=== PATIENT | female | born 1995 | race Caucasian/White ===

== ENCOUNTER → 2016-08-03 22:20 | Observation (INO) ==
[2016-08-03 16:30] LABS: Basophils # 0.1 K/mcL (0.0-0.2); Basophils % 0.3 %; Eosinophils % 0.2 %; Hematocrit 35.5 % (35.3-44.9); Hemoglobin 11.9 g/dL (11.5-15.4); Immature Granulocytes % 1.5 % (0-4); Lymphocytes # 2.6 K/mcL (0.6-4.6); Lymphocytes % 12.6 %; Mean Corpuscular HGB Conc 33.5 g/dL (31.6-35.5); Mean Corpuscular Hemoglobin 32.1 pg (28.0-33.3); Mean Corpuscular Volume 95.7 fL (83.0-100.0); Mean Platelet Volume 11.4 fL (9.4-12.4); Monocytes # 0.9 K/mcL (0.0-1.3); Monocytes % 4.3 %; Neutrophils # 16.5 K/mcL (1.6-8.9); Platelet Count 209 K/mcL (140-400); Red Blood Count 3.71 M/mcL (3.82-4.97); Red Cell Distribution Width 12.7 % (11.5-14.5); Segmented Neutrophils % 81.1 %
[2016-08-03 16:31] LABS: Bilirubin,Urine Negative (Negative); Blood,Urine Negative (Negative); Clarity,Urine Cloudy (Clear); Color,Urine Dark Yellow (Yellow); Glucose,Urine (UA) Normal (Normal); Ketones,Urine 40 mg/dL (Negative); Leukocyte Esterase,Urine Small (Negative); Nitrite,Urine Negative (Negative); PH,Urine 6.5 pH Units (5.0-8.0); Protein,Urine Trace mg/dL (Neg-Trace); Specific Gravity,Urine 1.028 (1.010-1.025); Urobilinogen,Urine Normal (Normal)
[2016-08-03 16:35] LABS: Bacteria,Urine Few per hpf (None-Few); RBC,Urine 0-3 per hpf (0-3); Squamous Epithelial Cell,Urine Many per lpf (None-Few)
[2016-08-03 16:52] LABS: Hyaline Casts,Urine Few per lpf (None-Few); Mucus,Urine Moderate (Few)
--- NOTE | 2016-08-03 18:51 | OB/GYN History & Physical ---
Date of Encounter: 08/03/16 Time of Encounter: 18:44 Assessment and Plan (1) 29 weeks gestation of Current visit: Yes Status: Acute (2) uterine contractions in third trimester, antepartum Current visit: Yes Status: Acute Pt is now s/p 1 liter LR IV bolus and terbutaline x1. Celestone given x1. Will repeat tomorrow. Second liter IV bolus ordered. Pt denies cramping pain. SVE 1/80/-1 x 2 exams. Will consider magnesium at this time if contractions persist. Possible transfer to [facility] if cervical change noted discussed at length with pt. POC per Dr. Rodrigues (3) Dehydration Current visit: Yes Status: Acute UA with high specific gravity and 40 ketones. Pt s/p 1 liter fluid bolus and receiving another liter at this time. (4) Leukocytosis, unspecified Current visit: Yes Status: Acute WBC 20.5 prior to administration of celestone. No evidence of infection otherwise. Qualifiers: Leukocytosis type: unspecified Qualified Code(s): D72.829 - Elevated white blood cell count, unspecified History of Present Illness Chief complaint: contractions HPI: Ms. Flores is a 20 year old female presenting at 29 weeks gestation with c/ o contractions and shortened cervical length. She was evaluated in the office today and US showed cervical length 18mm with vertex presentation and adequate fluid. Initially in triage pt was not having contractions on toco but after a while she started having regular contractions. She reports one episode of emesis this am and she has not had much water or food today. She reports some pelvic pressure and lower back pain but no cramping pain, LOF, or VB. Good FM. Past Med Surg Social Fam HX - Past Medical History Medical history: no medical history Psychiatric history: no psych history - Social History Smoking Status: Never smoker Smokeless Tobacco Status: No Alcohol use: none Drug use: none Obstetrical History - Pregnancies : 2 Para: 0 Ab's: 1 - History/Complications History/Complications: 6 week SAB Medications and Allergies Allergies No Known Allergies Allergy (Verified 10/20/15 17:46) Review of System OB - Constitutional Constitutional ROS IM: no chills, no fever(s) - Nose, mouth, and throat Nose, mouth and throat: no nasal congestion, no nasal discharge, no post-nasal drip - Respiratory Respiratory: no cough, no chest congestion - Gastrointestinal Gastrointestinal: vomiting, no cramping - Genitourinary Genitourinary: no dysuria, no urinary frequency, no urinary urgency, no vaginal discharge, no vaginal odor Exam - Constitutional Constitutional: well developed, well nourished, no acute distress - HEENT HEENT: Mucus Membranes Dry - Neck Neck exam: normal inspection - Lungs Respiratory exam: CTAB - Cardiovascular Cardiovascular exam: RRR, +S1, +S2 - Abdomen Abdomen: Present: gravid. Absent: non tender - Vulva Vulva: bilateral: normal - Vagina Vagina: Present: normal moisture - Cervix Dilation: 1 Effacement: 80 Station: -1 - Uterus Uterus exam: Absent: tender - Anus/Rectum Anus/Rectum: Present: normal perianal skin Results Result Diagrams: 08/03/16 16:15 Abnormal lab results WBC 20.4 K/mcL (4.3-11.1) H 08/03/16 16:15 RBC 3.71 M/mcL (3.82-4.97) L 08/03/16 16:15 Neutrophils # 16.5 K/mcL (1.6-8.9) H 08/03/16 16:15 Urine Clarity Cloudy (Clear) A 08/03/16 16:10 Ur Specific [place] 1.028 (1.010-1.025) H 08/03/16 16:10 Urine Ketones 40 mg/dL (Negative) H 08/03/16 16:10 Ur Leukocyte Esterase Small (Negative) H 08/03/16 16:10 Urine Microscopic WBC 5-15 per hpf (0-3) H 08/03/16 16:10 Ur Squamous Epith Cells Many per lpf (None-Few) H 08/03/16 16:10 Urine Mucus Moderate (Few) H 08/03/16 16:10 Ur Culture Indicated? YES (NO) A 08/03/16 16:10 All other labs normal. - VTE Reasons for not Prescribing Prophylaxis: Treatment not Indicated - Low risk for VTE
--- NOTE | 2016-08-03 19:09 | OB Labor Progress Note ---
Date of Encounter: 08/03/16 Time of Encounter: 19:07 Labor Progress Note - Subjective Subjective: Pt reports less pressure and the uc's are easing up with hydration. No other c/ o. No s/sx's of infection. - Vital Signs Vital Signs: AF, VSS - Cervix Cervix: 1+/80/-2 - Heart Tones Heart Tones: RNST - Keno Keno: irregular uc's - Plan Plan: Cont. obs. Consider repeat Brethine vs MgSo4.
--- NOTE | 2016-08-03 22:03 | OB Labor Progress Note ---
Date of Encounter: 08/03/16 Time of Encounter: 22:00 Labor Progress Note - Subjective Subjective: Pt no longer feeling uc's or pressure. No VB or LOF. - Vital Signs Vital Signs: AF - Cervix Cervix: 1/80/-1 (No change) - Heart Tones Heart Tones: RNST - Beltrami Beltrami: occ irritability. - Plan Plan: Encouraged pt to stay overnight for observation however she states she feels much better and desires d/c home stating she can do bed rest at home and be off of work. Advised pelvic rest. She states she will call for recurrent uc's, vb or lof. She is aware of high risk of premature delivery. She will return to office tomorrow for rpt dose of steroids.
[~2016-08-03 22:20] MED LIST: Betamethasone Acet/SodPhos 6 MG/ML MDV IM SCH; Ringers Solution, Lactated 1,000 ML IVC ONE; Ringers Solution, Lactated 1,000 ML ONE; Terbutaline 1 MG/ML VIAL SQ ONE
== END | disposition home or self-care (01) ==
LOC: 1NENULAB
PROVIDERS: ADMIT Obstetrics & Gynecology; ATTEND Obstetrics & Gynecology

== ENCOUNTER → 2016-09-23 18:05 | Observation (INO) ==
--- NOTE | 2016-09-23 18:05 | Discharge Summary ---
Date of Encounter: 09/23/16 Time of Encounter: 18:05 - Discharge Diagnosis (1) 37 weeks gestation of Priority: Primary Status: Acute Comments: admitted for observation (2) NST (non-stress test) reactive Priority: Secondary Status: Acute Comments: BAseline 135 bpm moderate variability +15x15 accels no decels noted. (3) uterine contractions in third trimester, antepartum Priority: Secondary Status: Acute Comments: no cervical change after labor evaluation - Discharge Medications Home Medications: No Known Home Drugs 09/23/16 [History] Allergies/Adverse Reactions: Allergies No Known Allergies Allergy (Verified 10/20/15 17:46) Date of admission: 09/23/16 16:07 Discharging clinician: Lesvia Tracy date of discharge: 09/23/16 - Patient Status Disposition: Home, Self-Care Condition: Good - Discharge Instructions Follow Up With: Amarjit Rodrigues MD [Partnered Physician] - Additional Instructions: LABOR AND DELIVERY DISCHARGE INSTRUCTIONS Signs and Symptoms to be Reported to your Doctor Immediately: * Sudden gush, continuous or intermittent lead of fluid from vagina (note the time of gush and color of fluid) * Onset of bright red vaginal bleeding with or without pain (if you had a vaginal exam during this visit you may notice some dark red spotting. This is normal.) * Contractions that are 5 minutes apart (from the beginning of one contraction to the beginning of the next) and last 45-60 seonds; contractions that you can no longer walk, talk or laugh through. * A change in the baby's activity. This could be an increase or decrease in activity. * Severe headache which does not go away with tylenol. * Sudden swelling in the face, hands, arms and/or legs. * Upper abdominal pain - sometimes associated with heartburn or nausea and is not relieved by Maalox, Mylanta or Tums. * Kick Counts _6-8_ One hour after a meal, lay down on one side in a quiet place. Count the number of time the baby moves during an hour. If less than 6 movements, notify your physician Diet: *Force fluids, 8 to 10 tall glasses of fluid per day - may include popsicles and jello *Limit caffeine - this includes chocolate, coffee, tea, any soft drink containing such as all rebecca, Naveed Yellow and Mountain Dew - Diet and Activity Activity: increase activity as tolerated Diet: regular diet Hospital Course CREAM DUMPER Hospital course: Patient is 21 y/o at 37 weeks gestation presents with complaints of contractions that have increased in strength. Patient denies LOF or VB. Patient reports +FM. Time Attestation: Total time spent providing and/or coordinating discharge services: Time Spent: Less than 30 minutes Exam - Constitutional General appearance IM: A&O X 3, pleasant, answers questions appropriately (FHR 135 bpm moderate variability +15x15 accels no decels noted. Contractions are irregular cat. 1 tracing) - VTE Reasons for not Prescribing Prophylaxis: Treatment not Indicated - Low risk for VTE
== END | disposition home or self-care (01) ==
LOC: 1NENULAB
PROVIDERS: ADMIT Obstetrics & Gynecology; ATTEND Obstetrics & Gynecology

== ENCOUNTER 2016-09-24 04:49 | Inpatient (IN) ==
[~2016-09-24 04:49] MED LIST changes: -Betamethasone Acet/SodPhos 6 MG/ML MDV IM SCH; +Famotidine 20 MG/2 ML VIAL IVP PRN; +Naloxone 0.4 MG/ML INJ IVP PRN; +Ondansetron 4 MG/2 ML VIAL IVP PRN; -Ringers Solution, Lactated 1,000 ML IVC ONE; -Ringers Solution, Lactated 1,000 ML ONE; -Terbutaline 1 MG/ML VIAL SQ ONE
[2016-09-24] MEDS ORDERED: Oxytocin 20 units/ LR 1000 mL 20 UNIT/1,000 ML BAG IVC ONE (04:52)
[2016-09-24] MEDS ORDERED: Ringers Solution, Lactated 1,000 ML ONE (04:52)
--- NOTE | 2016-09-24 04:57 | OB/GYN History & Physical ---
Date of Encounter: 09/24/16 Time of Encounter: 04:52 Assessment and Plan (1) Spontaneous onset of labor Current visit: Yes Status: Acute Admit for delivery (2) 37 weeks gestation of Current visit: No Status: Acute admit for delivery History of Present Illness Chief complaint: Contractions HPI: Ms. Flores is a 21 year old female at 37w2d presents to labor and delivery with complaints of contraction that have continued since earlier today. Patient reports some bloody show. Patient denies LOF. Patient reports +FM. Blood type: A Negative, Rubella: Immune Hep B: Nonreactive, GBS: Negative. Patient was scheduled for IOL on 09/27/2016 for IUGR. Past Med Surg Social Fam HX - Past Medical History Source: patient Medical history: no medical history Psychiatric history: no psych history - Past Surgical History Surgical History: other - Social History Smoking Status: Current every day smoker Packs per day: 0.5 Smokeless Tobacco Status: No Alcohol use: none Drug use: none Current living situation: Home - Independent Activity Level: Independent ambulation Recent Out of Country Travel Within the Last 8 Weeks: No Exposure or Possible Exposure to Illness During Travel: No - Family History Mother Living Status: Still Living Hx Family Cardiac Disorders: No Hx Family Respiratory Disorders: No Hx Family Cancer: No Hx Family GI Disorders: No Hx Family Genitourinary Disorders: No Hx Family Endocrine Disorder: No Hx Family Musculoskeletal Disorders: No Hx Family Neuromuscular Disorders: No Hx Family Neurologic Disorders: No Hx Family HEENT Disorders: No Hx Family Autoimmune Disorders: No Hx Family Reproductive Disorders: No Hx Family Psychosocial Disorders: No Hx Family Medical Disorders: No Obstetrical History - Pregnancies : 2 Para: 0 Term: 0 : 0 Ab's: 1 Livin Medications and Allergies No Known Home Drugs 09/23/16 [History] Allergies No Known Allergies Allergy (Verified 10/20/15 17:46) Review of System OB - Constitutional Constitutional ROS IM: no chills, no fever(s) - Cardiovascular Cardiovascular: no lightheadedness, no palpitations, no syncope - Gastrointestinal Gastrointestinal: no abdominal pain, no constipation, no diarrhea, no heartburn , no nausea, no vomiting - Genitourinary Genitourinary: vaginal discharge (bloody show), no dysuria, no flank pain, no urinary frequency, no urinary incontinence, no vaginal odor Exam - Vital Signs Vital signs: Initial Vital Signs Temp Pulse Resp BP 97.7 F 68 16 127/72 09/24/16 04:36 09/24/16 04:36 09/24/16 04:36 09/24/16 04:36 - Constitutional Constitutional: well developed, well nourished, no acute distress, average body habitus - HEENT HEENT: Normocephaly, Mucus Membranes Moist - Neck Neck exam: full ROM - Lungs Respiratory exam: CTAB - Cardiovascular Cardiovascular exam: RRR, +S1, +S2 - Abdomen Abdomen: Present: bowel sounds normal, gravid, non tender - Extremities Extremities exam: full ROM, normal capillary refill Deep Tendon Reflex Grade: 2+ Normal - Cervix Dilation: 9 Effacement: 100 Station: 0 - Uterus Uterus exam: Present: normal size, normal contour - Anus/Rectum Anus/Rectum: Present: normal perianal skin (FHR 120 bpm moderate variability + 15x15 accels no decles noted. Contractions are 1-3.5 min apart. Cat. 1 tracing.) Results All other labs normal. - VTE Reasons for not Prescribing Prophylaxis: Treatment not Indicated - Low risk for VTE
[2016-09-24] MEDS ORDERED: Ringers Solution, Lactated 1,000 ML IVC SCH (05:00)
[2016-09-24 05:08] LABS: Basophils % 0.1 %; Hematocrit 36.4 % (35.3-44.9); Hemoglobin 12.2 g/dL (11.5-15.4); Immature Granulocytes % 0.8 % (0-4); Lymphocytes # 1.6 K/mcL (0.6-4.6); Lymphocytes % 7.3 %; Mean Corpuscular HGB Conc 33.5 g/dL (31.6-35.5); Mean Corpuscular Hemoglobin 30.7 pg (28.0-33.3); Mean Corpuscular Volume 91.7 fL (83.0-100.0); Mean Platelet Volume 11.8 fL (9.4-12.4); Monocytes # 0.4 K/mcL (0.0-1.3); Monocytes % 1.9 %; Neutrophils # 20.3 K/mcL (1.6-8.9); Platelet Count 209 K/mcL (140-400); Red Blood Count 3.97 M/mcL (3.82-4.97); Red Cell Distribution Width 13.2 % (11.5-14.5); Segmented Neutrophils % 89.9 %
[2016-09-24] MEDS ORDERED: Lidocaine 1% 20 ML MDV ONE (05:36)
[2016-09-24] MEDS ORDERED: *HR* Ropivacaine/PF 0.2% 10 ML AMPUL EP ONE (05:57)
[2016-09-24] MEDS ORDERED: *HR* FentaNYL (PF) 100 MCG/2 ML VIAL EP ONE (05:57)
[2016-09-24] MEDS ORDERED: Epidural Premix (fent/bupiv) 110 ML EP ONE (05:59)
[2016-09-24] MEDS ORDERED: *HR* FentaNYL (PF) 100 MCG/2 ML VIAL ONE (05:59)
[2016-09-24] MEDS ORDERED: *HR* Ropivacaine/PF 0.2% 10 ML AMPUL ONE (05:59)
[2016-09-24] MEDS ORDERED: Epidural Premix (fent/bupiv) 110 ML EP SCH (06:00)
--- NOTE | 2016-09-24 06:21 | Anesthesia Evaluation PreOp ---
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 Any Significant HX Other Medical History: GERD Anesthesia History: No Prior Anesthetic Complications, Past Anesthesia (T&A), Problems (no prob) : Yes Test: Positive Alcohol Use: none Drug use: none Medications and Allergies No Known Home Drugs 09/23/16 [History] Allergies No Known Allergies Allergy (Verified 10/20/15 17:46) - Meds/Allergy Pre-op Review Medications Reviewed: Yes Allergies Reviewed: Yes Beta Blockers on Current Med List: No Anesthesia Results - Labs 09/24/16 04:50 Anesthesia Exam 120/67 79 fht 124 Height: 5'0" Weight: 48 kg NPO (# of Hours): 4 Pain Scale: 8 Pain Scale Used: Numeric (1 - 10) - HEENT Pupil (Motor): Pupils equal Mallampati: II Teeth: Normal Oral Opening: Greater than 3 - BLUEPRINT REPRODUCER LOC: Oriented [employer]UEPRINT REPRODUCER Motor: Normal RUE, Normal LUE, Normal RLE, Normal LLE, Normal Face [employer]UEPRINT REPRODUCER Sensory: Normal: RUE, LUE, RLE, LLE, Face - Cardiac Rhythm: Regular Murmur: None - Pulmonary Breath Sounds: bilateral Clear Respiratory Effort: Symmetrical Anesthesia Assess/Plan ASA Score: 2 Modified Arabella Scale for Level of Consciousness: Cooperative, oriented, and tranquil Anesthetic Plan: Regional Autologous Blood: No Monitoring Plan: Standard Monitors Recovery Plan: Other (risks discussed, questions answered, consented)
--- NOTE | 2016-09-24 06:24 | Anesthesia Procedures ---
Date of Encounter: 09/24/16 Time of Encounter: 06:22 Procedures: Anesthesia - Epidural/Spinal Patient ID/Chart reviewed: Yes Patient examined: Yes OB Eval: Gestational age: 37.2 OB Eval: : 2 OB Eval: Hx Para: 0 OB Eval: Dilated at (cm): 8 OB Eval: Contractions: Non-stressed pattern Consent Obtained: Yes Supplemental Oxygen: None/Room Air Site Prep: Aseptic Technique, Sterile prep and drape, 0.5% Chlorhexidine/Alcohol Patient position: upright Local Anesthetic: Lidocaine 1% Amount of Local Anesthetic used: 3 Touhy Needle Gauge: 18 Touhy Needle Depth (cm): 6 Catheter Depth at Skin (cm): 15 Test Dose (1.5% Lido + Epi): Volume given (mls): 3 Test Dose Result: Negative Loading Dose: Fentanyl (mcg): 100 Loading Dose: Other: rop 0.2% 10cc Loading Dose Administered: Thru Touhy Needle Infusion Med: 0.125% Bupivacaine w/ 2 mcg/ml Fentanyl Infusion Rate (mls/hr): 14 (pcea 5cc q30 min) Catheter Secured in Place: Tegaderm Interspace Used: L2-L3 Loss of Resistance (RAULITO): Yes Blood: No CSF: No Paresthesia: No Procedure: aseptic, tolerated well, VSS, effective Vitals + FHT's: 124/79 77 fht 124
--- NOTE | 2016-09-24 07:12 | OB Labor Progress Note ---
Date of Encounter: 09/24/16 Time of Encounter: 06:55 Labor Progress Note - Subjective Subjective: Patient resting comfortable with epidural in place. Discussed POC with patient. Patient denies any questions or concerns. - Cervix Cervix: 100/0/1 - Heart Tones Heart Tones: 135 bpm moderate variability +15x15 accels no decels noted - Groes[place] Groesbeck: 1.5-3 min - Interventions Interventions: SVE, AROM small amount of clear fluid. Patient tolerated well - Plan Plan: Dr. Martinez notified patient is ready for delivery.
--- NOTE | 2016-09-24 08:01 | OB/GYN Procedure Note ---
Delivery - Delivery Date: 09/24/16 Provider: Fer Martinez Intrapartum events: none Delivery induction: none Delivery augmentation: rupture of membranes Delivery monitor: external FHT, external uterine Anesthesia: epidural Estimated Blood Loss: 100 - (s) Infant A Delivery Date: 09/24/16 Infant Delivery Time: 07:36 Presentation: vertex Position: MAEVE Route of delivery: Gender: Female Viability: Viable Pounds: 5 Ounces: 5 Weight Gram: 2.42 kg at 1 minute: 8 at 5 mins: 9 Shoulder Dystocia: not encountered Specimens collected: cord blood Cord: nuchal cord (around left arm and body) - Repair Laceration Description: Periurethral (bilaterally) - Complications Delivery complications: none Delivery comments: Patient is a 21-year-old 1 para 0 at 37 weeks who had presented to labor and delivery in active labor. Patient had been seen earlier in the day complaining of feeling vaginal pressure and contractions. She was 3-4 cm we washed her for couple hours she continued to contract. Patient felt to be more comfortable laboring at home and we allowed her to leave. Patient returned she was 9 cm. Patient's was complicated with a recent ultrasound showing intrauterine growth restriction. The baby was at the 10th percentile for growth and JEAN-PIERRE was 10 cm but Dopplers were normal. Patient was can be scheduled for an induction later in the week. The measurements on the baby were less than the 1st percentile. Patient did receive an epidural upon arrival she was artificially ruptured clear fluid patient and pushed for approximately 30 minutes delivering a viable female infant in left occiput anterior presentation at 0 736. There was a nuchal cord around the left arm and body 1 which was delivered through. There was no meconium, infant was bulb suctioned on the abdomen, Apgars were 8 at 1 minute and 9 at 5 minutes infant weight was 5 lbs. 5 oz. Placenta delivered spontaneously with a three- vessel cord, superintendent operating Dr. Martinez, anesthesia epidural, estimated blood loss 100 mL. She had bilateral periurethral abrasions that because of the separation I felt it would be in her best interest for us to reapproximate that before Vicryl was then used to reapproximate these preparations. Perineum cervix and vagina was visualized intact. She will be observed 2 hours before being taken floor. All needles lap and sponge counts were correct. - Disposition Mom disposition: stable in LDR Neligh disposition: stable in LDR
[2016-09-24] MEDS ORDERED: Ibuprofen 600 MG TABLET PO PRN (09:11)
[2016-09-24] MEDS ORDERED: Oxytocin 20 units/ LR 1000 mL 20 UNIT/1,000 ML BAG IVC SCH (09:11)
[2016-09-24] MEDS ORDERED: Prenatal Vit/FA 1 EACH TABLET PO SCH (09:11)
[2016-09-24] MEDS ORDERED: Rho Immune Globulin 1,500 UNIT SYRINGE IM PRN (09:11)
[2016-09-24] MEDS ORDERED: Acetaminophen 325 MG TABLET PO PRN (09:11)
[2016-09-24] MEDS ORDERED: Measles/Mumps/Rubella Vacc 0.5 ML VIAL SQ PRN (09:11)
[2016-09-25 06:28] LABS: Basophils % 0.2 %; Eosinophils % 0.3 %; Hematocrit 29.8 % (35.3-44.9); Immature Granulocytes % 0.6 % (0-4); Lymphocytes # 3.4 K/mcL (0.6-4.6); Lymphocytes % 26.7 %; Mean Corpuscular HGB Conc 33.9 g/dL (31.6-35.5); Mean Corpuscular Hemoglobin 31.6 pg (28.0-33.3); Mean Corpuscular Volume 93.1 fL (83.0-100.0); Mean Platelet Volume 12.4 fL (9.4-12.4); Monocytes # 0.6 K/mcL (0.0-1.3); Monocytes % 4.5 %; Neutrophils # 8.6 K/mcL (1.6-8.9); Platelet Count 156 K/mcL (140-400); Red Cell Distribution Width 13.6 % (11.5-14.5); Segmented Neutrophils % 67.7 %
[2016-09-25 06:42] LABS: Hemoglobin 10.1 g/dL (11.5-15.4)
--- NOTE | 2016-09-25 07:32 | Discharge Summary ---
Date of Encounter: 09/25/16 Time of Encounter: 07:30 - Discharge Diagnosis (1) Status post normal vaginal delivery Priority: Primary Status: Acute - Discharge Medications Prescriptions: Ibuprofen [Motrin] 600 mg PO Q6HR PRN #30 tab PRN Reason: Cramping Ferrous Sulfate 325 mg PO DAILY #30 tab Home Medications: No Known Home Drugs 09/23/16 [History] Ferrous Sulfate 325 mg PO DAILY #30 tab 09/25/16 [Rx] Ibuprofen [Motrin] 600 mg PO Q6HR PRN #30 tab 09/25/16 [Rx] Allergies/Adverse Reactions: Allergies No Known Allergies Allergy (Verified 10/20/15 17:46) Data Procedures and tests throughout hospitalization: Laboratory Tests 09/24/16 09/24/16 09/25/16 04:50 07:45 05:23 WBC 22.6 H 12.8 H RBC 3.97 3.20 L Hgb 12.2 10.1 L D Hct 36.4 29.8 L MCV 91.7 93.1 MCH 30.7 31.6 MCHC 33.5 33.9 RDW 13.2 13.6 Plt Count 209 156 MPV 11.8 12.4 Immature Gran % 0.8 0.6 Seg Neutrophils % 89.9 67.7 Lymphocytes % 7.3 26.7 Monocytes % 1.9 4.5 Eosinophils % 0.0 0.3 Basophils % 0.1 0.2 Neutrophils # 20.3 H 8.6 Lymphocytes # 1.6 3.4 Monocytes # 0.4 0.6 Eosinophils # 0.0 0.0 Basophils # 0.0 0.0 Baby's Blood Type A RH NEGATIVE Mother's Blood Type A RH NEGATIVE Rhogam Indicated NO Labs on day of discharge: Labs from last 24 hours 09/25/16 09/24/16 05:23 07:45 WBC 12.8 H RBC 3.20 L Hgb 10.1 L D Hct 29.8 L MCV 93.1 MCH 31.6 MCHC 33.9 RDW 13.6 Plt Count 156 MPV 12.4 Immature Gran % 0.6 Seg Neutrophils % 67.7 Lymphocytes % 26.7 Monocytes % 4.5 Eosinophils % 0.3 Basophils % 0.2 Neutrophils # 8.6 Lymphocytes # 3.4 Monocytes # 0.6 Eosinophils # 0.0 Basophils # 0.0 Baby's Blood Type A RH NEGATIVE Mother's Blood Type A RH NEGATIVE Rhogam Indicated NO Date of admission: 09/24/16 04:49 Consults: 09/24/16 09:11 Consult to Program Officer [CONS] Routine Comment: Vaginal delivery, consult needed Discharging clinician: Fer Martinez Anticipated date of discharge: 09/25/16 - Patient Status Disposition: Home, Self-Care Condition: Good Functional capacity at discharge: independent ambulation Overall status at discharge: patient is progressing back to baseline - Discharge Instructions - Diet and Activity Activity: increase activity as tolerated Diet: advance to your usual diet Hospital Course Reason for admission: active labor Delivery: Episiotomy: none Laceration: other (Periurethral laceration) Other procedures: none complications: none Discharge diagnosis: delivery baby: female Hospital course: Patient is a 21-year-old who presents to labor and delivery in active labor. Patient presented to labor and delivery through the day with complaint of contractions. She was ruben regularly but not making any cervical change. Patient chose to go home to labor at home patient returned in the middle of the night and was 9 cm. Patient delivered a viable female infant without any palpitations. was IUGR and was scheduled for an induction later this week. Baby has done well since the delivery as has mom. Patient's hospital unremarkable we will discharge patient home with a prescription for Motrin 600 mg and iron sulfate she will follow-up in the office in 4 weeks. Patient's hospital course was unremarkable. Time Attestation: Total time spent providing and/or coordinating discharge services: Exam - Constitutional Vitals: Temp Pulse Resp BP Pulse Ox 98.0 F 76 20 119/87 98 09/25/16 03:45 09/25/16 03:45 09/25/16 03:45 09/25/16 03:45 09/25/16 03:45 General appearance IM: A&O X 3 - Respiratory Respiratory exam: Present: CTAB - Cardiovascular Cardiovascular exam IM: Present: RRR - Rectal Rectal exam: deferred - Uterus Position: 2 Fingers Below Umbilicus - Extremities Exam Extremities exam IM: Present: full ROM
[2016-09-25 07:56] VITALS: BP 108/63
== END 2016-09-25 11:44 | disposition home or self-care (01) | DRG 560 ==
LOC: 1NENULAB → 1NENUOBS 10:16
PROVIDERS: ADMIT Advanced Practice Midwife; ATTEND Advanced Practice Midwife

== ENCOUNTER → 2018-08-25 13:56 | Observation (INO) ==
--- NOTE | 2018-08-25 13:33 | OB/GYN Progress Note ---
Date of Encounter: 08/25/18 Time of Encounter: 13:25 - Assessment and Plan (1) 28 weeks gestation of Current Visit: Yes Status: Acute Second betamethasone injection Discharge home with terconazole No cervical change Discharge home with labor precautions Stressed importance of attending visits Follow up in office as scheduled and PRN POC per consult with Dr Kapoor (2) Yeast infection of the vagina Current Visit: Yes Status: Acute Subjective - Subjective Principal diagnosis: Vaginal pressure Interval history: shanti Evans at 28 weeks and 4 days presents to triage with c/o vaginal pressure. She denies intercourse within the past 24 hours. She was assessed in the office yesterday with similar complaints and had a urinalysis, vaginosis panel, and vaginal exam completed; all results were negative. She was given steroids. She returned to triage today for her second dose of steroids. She has been noncompliant with her care and is seen by Dr Rodrigues. Antepartum ROS: movement normal Objective - Exam FHR: auscultation normal, category 1 FHR comments: Baseline 140 moderate variability 15x15 accels and no decels. no contractions Abdomen: Present: normal appearance, soft, gravid Uterus: Present: normal. Absent: firm Cervical dilation: 1-2 Cervix effacement: thick station: -3 Comments: no change from exam yesterday; obvious yeast on glove after vaginal exam
[~2018-08-25 13:56] MED LIST changes: +Betamethasone Acet/SodPhos 30 MG/5 ML VIAL IM SCH; -Famotidine 20 MG/2 ML VIAL IVP PRN; -Naloxone 0.4 MG/ML INJ IVP PRN; -Ondansetron 4 MG/2 ML VIAL IVP PRN; +Terconazole Vag CRM 20 GM TUBE VG SCH
== END | disposition home or self-care (01) ==
LOC: 1NENULAB
PROVIDERS: ADMIT Advanced Practice Midwife; ATTEND Advanced Practice Midwife

== ENCOUNTER 2018-09-09 19:56 | Observation (INO) ==
[2018-09-09 20:20] LABS: Bilirubin,Urine Negative (Negative); Blood,Urine Negative (Negative); Clarity,Urine Turbid (Clear); Color,Urine Yellow (Yellow); Glucose,Urine (UA) Normal (Normal); Ketones,Urine Negative (Negative); Leukocyte Esterase,Urine Small (Negative); Nitrite,Urine Negative (Negative); Protein,Urine Negative (Neg-Trace); Specific Gravity,Urine 1.016 (1.010-1.025); Urobilinogen,Urine Normal (Normal)
[2018-09-09 20:21] LABS: Bacteria,Urine Few per hpf (None-Few); Hyaline Casts,Urine None Seen per lpf (None-Few); Squamous Epithelial Cell,Urine Many per lpf (None-Few); WBC,Urine 15-30 per hpf (0-3)
[2018-09-09 20:31] LABS: Amphetamine Screen,Urine Negative ng/mL (Cutoff=1000); Barbiturate Screen,Urine Negative ng/mL (Cutoff=200); Benzodiazepines Screen,Urine Negative ng/mL (Cutoff=200); Cannabinoid Screen,Urine Positive ng/mL (Cutoff = 50); Cocaine Screen,Urine Negative ng/mL (Cutoff= 300); Opiate Screen,Urine Negative ng/mL (Cutoff=300); Phencyclidine Screen,Urine Negative ng/mL (Cutoff=25)
[2018-09-09 20:35] LABS: Amorphous Sediment,Urine Moderate (Few); RBC,Urine 0-3 per hpf (0-3)
[2018-09-09] MEDS ORDERED: Ringers Solution, Lactated 1,000 ML ONE ×2 (21:02→22:09)
[2018-09-09] MEDS ORDERED: NIFEdipine 10 MG CAPSULE PO ONE (22:18)
[2018-09-09] MEDS ORDERED: Ringers Solution, Lactated 1,000 ML IVC SCH (22:30)
--- NOTE | 2018-09-09 23:20 | OB/GYN Progress Note ---
Date of Encounter: 09/09/18 Time of Encounter: 23:17 - Assessment and Plan (1) 30 weeks gestation of Current Visit: Yes Status: Acute (2) uterine contractions in third trimester, antepartum Current Visit: No Status: Acute Patient states she has had minimal fluid intake only approximately once 2 glasses of liquids today. One bag LR bolus then LR at 250/hr Procardia 20 mg by mouth 1 No cervical change after 2 hours, but is continuing to have contractions we will monitor for 4 hours If no further cervical change and less frequent contractions will discharge home Plan of care discussed with Dr. Staton Subjective - Subjective Interval history: 30+5 weeks gestation presents to triage with complaints of uterine contractions. Patient states she is been ruben since 6:00 this morning, and they became stronger this evening so she came for evaluation. Reports good movement, denies vaginal bleeding or leaking of fluid. She does states she has had some increased vaginal discharge, but it is not leaking of fluid. Patient with history of 3 delivery at 31 weeks. Inadequate care this with Dr. Rodrigues. Patient states she is continuing to get 17P injections. Antepartum ROS: movement normal, contractions, no loss of fluid, no vaginal bleeding Objective - Vital Signs Vital Signs: Intake and Output 09/09/18 09/09/18 09/09/18 07:59 15:59 23:59 Other: Weight 47.174 kg Patient Weight 09/09/18 23:59 Weight 47.174 kg - Exam FHR: auscultation normal FHR comments: Baseline 140 Abdomen: Present: gravid Cervical dilation: 23/50/-2/vertex - Labs Labs: Abnormal lab results Turbid (Clear) A 09/09/18 20:06 Ur Leukocyte Esterase Small (Negative) H 09/09/18 20:06 15-30 per hpf (0-3) H 09/09/18 20:06 Ur Squamous Epith Cells Many per lpf (None-Few) H 09/09/18 20:06 Amorphous Sediment Moderate (Few) H 09/09/18 20:06 Ur Culture Indicated? YES (NO) A 09/09/18 20:06 U Marijuana (THC) Screen Positive ng/mL (Cutoff = 50) H 09/09/18 20:06
== END 2018-09-10 03:18 | disposition home or self-care (01) ==
LOC: 1NENULAB
PROVIDERS: ADMIT Advanced Practice Midwife; ATTEND Advanced Practice Midwife

== ENCOUNTER 2018-10-08 15:16 | Inpatient (IN) ==
[2018-10-08] MEDS ORDERED: Ondansetron 4 MG/2 ML VIAL IVP PRN ×3 (15:29→20:18)
[2018-10-08] MEDS ORDERED: *HR* FentaNYL (PF) 100 MCG/2 ML VIAL EP ONE (15:29)
[2018-10-08] MEDS ORDERED: Naloxone 0.4 MG/ML INJ IVP PRN ×2 (15:29→15:32)
[2018-10-08] MEDS ORDERED: Ringers Solution, Lactated 1,000 ML ONE ×2 (15:29→16:28)
[2018-10-08] MEDS ORDERED: EPHEDrine 50 MG/ML VIAL IVP PRN (15:29)
[2018-10-08] MEDS ORDERED: Ropivacaine/PF 0.2% 20 ML VIAL EP ONE (15:29)
[2018-10-08] MEDS ORDERED: Epidural Premix (fent/bupiv) 110 ML EP SCH (15:30)
[2018-10-08] MEDS ORDERED: Metoclopramide 10 MG/2 ML VIAL IVP PRN ×2 (15:32→20:18)
[2018-10-08] MEDS ORDERED: Famotidine 20 MG/2 ML VIAL IVP PRN (15:32)
[2018-10-08] MEDS ORDERED: *HR* Nalbuphine 10 MG/ML AMPUL IVP PRN (15:32)
[2018-10-08] MEDS ORDERED: Lidocaine 1% 20 ML MDV ID PRN (15:32)
[2018-10-08] MEDS ORDERED: Ringers Solution, Lactated 1,000 ML IVC SCH ×2 (15:45→20:18)
--- NOTE | 2018-10-08 15:45 | Anesthesia Evaluation PreOp ---
Date of Encounter: 10/08/18 - Past History Alcohol Use: none Drug use: marijuana Medications and Allergies Sertraline [Zoloft] 50 mg PO DAILY 08/25/18 [History] Allergy/AdvReac Type Severity Reaction Status Date / Time No Known Allergies Allergy Verified 09/09/18 20:06
[2018-10-08 15:47] LABS: Basophils % 0.2 %; Eosinophils % 0.1 %; Hematocrit 35.9 % (35.3-44.9); Hemoglobin 11.8 g/dL (11.5-15.4); Immature Granulocytes % 0.5 % (0-4); Lymphocytes # 1.9 K/mcL (0.6-4.6); Lymphocytes % 13.1 %; Mean Corpuscular HGB Conc 32.9 g/dL (31.6-35.5); Mean Corpuscular Hemoglobin 29.7 pg (28.0-33.3); Mean Corpuscular Volume 90.4 fL (83.0-100.0); Mean Platelet Volume 11.7 fL (9.4-12.4); Monocytes # 0.5 K/mcL (0.0-1.3); Monocytes % 3.2 %; Neutrophils # 12.3 K/mcL (1.6-8.9); Platelet Count 219 K/mcL (140-400); Red Blood Count 3.97 M/mcL (3.82-4.97); Red Cell Distribution Width 13.7 % (11.5-14.5); Segmented Neutrophils % 82.9 %; White Blood Count 14.9 K/mcL (4.3-11.1)
[2018-10-08] MEDS ORDERED: Epidural Premix (fent/bupiv) 110 ML EP ONE (15:51)
[2018-10-08] MEDS ORDERED: *HR* FentaNYL (PF) 100 MCG/2 ML VIAL ONE ×2 (16:01→16:35)
[2018-10-08] MEDS ORDERED: *HR* Oxytocin 10 UNIT/ML VIAL IM ONE ×2 (16:10→16:29)
[2018-10-08] MEDS ORDERED: Ondansetron 4 MG/2 ML VIAL ONE (16:30)
[2018-10-08] MEDS ORDERED: Dexamethasone 4 MG/ML VIAL ONE (16:30)
[2018-10-08] MEDS ORDERED: Oxytocin 20 units/ LR 1000 mL 20 UNIT/1,000 ML BAG IVC ONE (17:06)
[2018-10-08] MEDS ORDERED: *HR* Promethazine 25 MG/ML VIAL IVP PRN (17:29)
[2018-10-08] MEDS ORDERED: *HR* HYDROmorphone 2 MG TABLET PO PRN (17:29)
[2018-10-08] MEDS ORDERED: *HR* Labetalol 20 MG/4 ML SYRINGE IVP PRN (17:29)
[2018-10-08] MEDS ORDERED: *HR* OxyCODONE Immed Rel 5 MG TABLET PO PRN (17:29)
[2018-10-08] MEDS ORDERED: Acetaminophen IV 1,000 MG/100 ML INFUS..BTL IVPB ONE (17:34)
--- NOTE | 2018-10-08 17:38 | Anesthesia Progress Note ---
Date of Encounter: 10/08/18 Time of Encounter: 16:00 Anesthesia Note - Note Note: 10/08/18 17:36 Pt was sent to section emergently, consent not performed. Preoperative assessment verbally performed on the way to the operating room.
--- NOTE | 2018-10-08 17:45 | OB/GYN History & Physical ---
Date of Encounter: 10/08/18 Time of Encounter: 17:38 Assessment and Plan (1) 34 weeks gestation of Current visit: Yes Status: Acute 23-year-old at 34+6 weeks, History of labor status post betamethasone, Rh- status post RhoGAM, History of prior LTCS, Desires repeat , THC use Plan: At the time of signing the consent I noted that she started having what looked like late decelerations, so I called the emergent, FHT: 145/mod janee/+late decels, +accels History of Present Illness HPI: Ms. Flores is a 23 year old female at 34+6 weeks presents to labor and delivery in labor. She's been ruben all day and when she presented to L&D, her cervix was checked and was found to be 6cm with a bulging bag. Patient has a history of labor with delivery at 31 weeks as well as a history of primary low transverse section. According to her records, she's been noncompliant with her care, she uses THC. She had a history of labor this and was given betamethasone. She's been getting [place] injections. She desires repeat . Past Med Surg Social Fam HX - Past Medical History Medical history: non-contributory, other Additional medical history: tobacco use Psychiatric history: anxiety - Past Surgical History Surgical History: other Additional surgical history: tonsils, C/S - Social History Smoking Status: Current every day smoker Packs per day: 0.5 Smokeless Tobacco Status: No Alcohol use: none Drug use: none - Family History Mother Living Status: Still Living Hx Family Cardiac Disorders: No Hx Family Respiratory Disorders: No Hx Family Cancer: No Hx Family GI Disorders: No Hx Family Endocrine Disorder: No Hx Family Neuromuscular Disorders: No Hx Family Neurologic Disorders: No Hx Family HEENT Disorders: No Hx Family Autoimmune Disorders: No Maternal Grandfather Living Status: Still Living Hx Family Cardiac Disorders: Yes (LA at the age of 56) Hx Family Respiratory Disorders: No Hx Family Cancer: No Hx Family GI Disorders: No Hx Family Endocrine Disorder: No Hx Family Neuromuscular Disorders: No Hx Family Neurologic Disorders: No Hx Family HEENT Disorders: No Hx Family Autoimmune Disorders: No Paternal Grandfather Living Status: Hx Family Cardiac Disorders: Yes Obstetrical History - Pregnancies : 4 Para: 2 Medications and Allergies Sertraline [Zoloft] 50 mg PO DAILY 08/25/18 [History] Allergy/AdvReac Type Severity Reaction Status Date / Time No Known Allergies Allergy Verified 09/09/18 20:06 Review of System OB All systems PM: reviewed and no additional remarkable complaints except as stated Exam - Constitutional Constitutional: mild distress - Cervix Dilation: 6 Results Result Diagrams: 10/08/18 15:35 Abnormal lab results WBC 14.9 K/mcL (4.3-11.1) H 10/08/18 15:35 Neutrophils # 12.3 K/mcL (1.6-8.9) H 10/08/18 15:35 All other labs normal. - VTE Reasons for not Prescribing Prophylaxis: Treatment not Indicated - Low risk for VTE
[2018-10-08] MEDS: *HR* HYDROmorphone (PF) 1 MG/ML SYRINGE IVP PRN ×2 (18:00→18:19)
--- NOTE | 2018-10-08 18:09 | OB/GYN Procedure Note ---
Section - Date of procedure: 10/08/18 Preop diagnosis: desires repeat , category 2 FHT tracing, desires sterilization Post-op diagnosis: same Procedure: repeat low transverse, bilateral tubal ligation Surgeon: Stevo Grider Quantitated Blood Loss: 200 Was there an addictions counselor assistant present: Yes Disaster Recovery Analyst: Bee Celeste [employer] Attendant: José Miguel Philip Anesthesia Type: General section complications: none Disposition: L&D Recovery Room Specimens: Placenta, Cord segment, Cord blood, Right tube segment, Left tube segment - Infant (s) Infant A Infant Delivery Date: 10/08/18 Delivery Time: 16:09 Presentation: vertex Gender: Male Gram Weight: 2.035 kg at 1 minute: 8 at 5 minutes: 9 Shoulder Dystocia: not encountered Placenta: complete extraction - Narrative Narrative: The patient was taken to the operating room where she was prepped and draped in the usual sterile fashion in the dorsal supine position with a left-horner tilt. General anesthesia was administered. A Pfannenstiel skin incision was made with the scalpel and carried through to the underlying layer of fascia. The fascia was incised in the midline and extended laterally. The fascial incision was dissected bluntly to reveal the underlying rectus muscles. The underlying rectus muscles were dissected off bluntly in the midline to reveal the peritoneum. The peritoneum was bluntly dissected, entered, and extended superiorly and inferiorly with good visualization of the bladder. The bladder blade was inser camilo. The lower uterine segment was incised in a transverse fashion using the scalpel and extended using manual traction. Clear fluid was noted. The was subsequently delivered atraumatically. The nose and mouth were bulb suctioned. The cord was clamped and cut. The infant was subsequently handed to the awaiting nursery nurse. The placenta was removed spontaneously intact with a 3-vessel cord noted. The uterus was exteriorized and cleared of all clots and debris. The uterine incision was repaired in 2 layers using 0 vicryl suture. Hemostasis was visualized. At this point, attention was diverted to the patient's tubes, a [place] clamp grasped the isthmic portion of each tube and approximately a 1-cm knuckle on either side was tied off with two lengths of 0 plain catgut. Intervening knuckle was excised and passed off the field. The proximal end of the tubal mucosa was cauterized. The uterus was returned to the abdomen. The uterine incision was reexamined and was noted to be hemostatic. The fascia was closed with 0 Vicryl. The skin was closed with 4-0 vicryl. Sponge, lap, and instrument counts were correct x2. The patient was stable at the completion of the procedure and was subsequently transferred to the recovery room in stable condition.
[2018-10-08] MEDS ORDERED: Simethicone 80 MG TAB.CHEW PO PRN (20:18)
[2018-10-08] MEDS ORDERED: Rho Immune Globulin 1,500 UNIT SYRINGE IM ONE (20:18)
[2018-10-08] MEDS ORDERED: Sennosides 8.6 MG TABLET PO PRN (20:18)
[2018-10-08] MEDS ORDERED: Oxytocin 20 units/ LR 1000 mL 20 UNIT/1,000 ML BAG IVC SCH (20:18)
--- NOTE | 2018-10-08 22:29 | Anesthesia Evaluation Post Op ---
Date of Encounter: 10/08/18 Time of Encounter: 21:30 - Vital Signs Vital Signs: Vital Signs Temperature 98.2 F 10/08/18 21:40 Pulse Rate 65 10/08/18 21:40 Respiratory Rate 14 10/08/18 21:40 Blood Pressure 121/70 10/08/18 21:40 O2 Sat by Pulse Oximetry 95 10/08/18 21:40 Temperature 98.2 F 10/08/18 21:40 Pulse Rate 65 10/08/18 21:40 Respiratory Rate 14 10/08/18 21:40 Blood Pressure 121/70 10/08/18 21:40 O2 Sat by Pulse Oximetry 95 10/08/18 21:40 - Lungs Lungs: Clear Ascult./Percussion - Airway Airway: Non-obstructed - Cardiovascular Regular Rate - Mental Status Mental Status: Alert & Oriented, Answers Appropriately - Pain Pain Scale: 4 Pain Scale used: Numeric (1 - 10) - Nausea Vomiting Nausea Vomiting: Not Present - Hydration Hydration: NPO, [place] catheter - Discharge PostOp Status: Transfer Patient to floor
[2018-10-08] MEDS: *HR* OxyCODONE/APAP 5/325 TABLET PO PRN (23:00)
[2018-10-09] MEDS: Ibuprofen 600 MG TABLET PO PRN ×4 (02:20→23:28)
[2018-10-09] MEDS: *HR* OxyCODONE/APAP 5/325 TABLET PO PRN ×4 (05:42→21:10)
--- NOTE | 2018-10-09 09:02 | OB/GYN Progress Note ---
Date of Encounter: 10/09/18 Time of Encounter: 09:00 - Assessment and Plan (1) Status post repeat low transverse section Current Visit: Yes Status: Acute Continue routine postop/ care anticipate discharge home tomorrow (2) Breast feeding status of mother Current Visit: No Status: Acute support prn Subjective - Subjective Principal diagnosis: Status post repeat c/s Interval history: Patient was 34w6d came into labor and delivery laboring. SVE 6cm dilated with bulging membranes. Patient was taken for an emergent repeat c/s for late decelerations. Patient reports pain is well controlled today. Patient reports: appetite normal, voiding normally, pain well controlled, ambulating normally [place]: doing well, in NICU, nursing well (breast pump) Objective - Vital Signs Latest vital signs: Vital Signs Temp Pulse Resp BP Pulse Ox 10/09/18 08:16 97.9 F 67 16 128/75 10/09/18 04:05 98.8 F 72 14 109/67 98 10/08/18 22:40 97.9 F 64 14 127/81 98 10/08/18 21:40 98.2 F 65 14 121/70 95 10/08/18 20:40 98.2 F 73 16 120/83 96 10/08/18 20:10 97.9 F 68 16 116/71 96 10/08/18 19:40 98.1 F 75 16 112/87 95 Intake and Output 10/08/18 10/09/18 10/09/18 23:59 07:59 15:59 Intake Total 550 / 550 Output Total 1125 / 1125 940 / 940 Balance -1125 / -1125 -390 / -390 Intake: Oral 550 / 550 Output: Catheter 1125 / 1125 940 / 940 Other: Weight 47.1 kg Patient Weight 10/09/18 23:59 Weight 47.1 kg - Exam Lungs: bilateral: normal Chest: Normal S1, Normal S2 Extremities: Present: normal Abdomen: Present: soft Incision: Present: normal, dry, intact, dressed (medipore dressing) Uterus: Present: normal, firm Fundal Height: 3 (U/3) - Labs Labs: Laboratory Results - last 24 hr 10/08/18 10/08/18 15:35 16:23 WBC 14.9 H RBC 3.97 Hgb 11.8 Hct 35.9 MCV 90.4 MCH 29.7 MCHC 32.9 RDW 13.7 Plt Count 219 MPV 11.7 Immature Gran % 0.5 Seg Neutrophils % 82.9 Lymphocytes % 13.1 Monocytes % 3.2 Eosinophils % 0.1 Basophils % 0.2 Neutrophils # 12.3 H Lymphocytes # 1.9 Monocytes # 0.5 Eosinophils # 0.0 Basophils # 0.0 Baby's Blood Type A RH NEGATIVE Mother's Blood Type A RH NEGATIVE Rhogam Indicated NO
[2018-10-09 09:14] LABS: Basophils % 0.2 %; Eosinophils % 0.2 %; Hematocrit 38.3 % (35.3-44.9); Hemoglobin 12.4 g/dL (11.5-15.4); Immature Granulocytes % 0.6 % (0-4); Lymphocytes # 3.2 K/mcL (0.6-4.6); Lymphocytes % 17.5 %; Mean Corpuscular HGB Conc 32.4 g/dL (31.6-35.5); Mean Corpuscular Hemoglobin 30.3 pg (28.0-33.3); Mean Corpuscular Volume 93.6 fL (83.0-100.0); Monocytes # 0.8 K/mcL (0.0-1.3); Monocytes % 4.2 %; Platelet Count 229 K/mcL (140-400); Red Blood Count 4.09 M/mcL (3.82-4.97); Red Cell Distribution Width 13.9 % (11.5-14.5); Segmented Neutrophils % 77.3 %; White Blood Count 18.1 K/mcL (4.3-11.1)
[2018-10-09] MEDS: Prenatal Vit/FA 1 EACH TABLET PO SCH (09:42)
[2018-10-10] MEDS: *HR* OxyCODONE/APAP 5/325 TABLET PO PRN ×3 (01:45→10:27)
[2018-10-10] MEDS: Ibuprofen 600 MG TABLET PO PRN (06:02)
[2018-10-10 07:58] VITALS: BP 116/69
[2018-10-10] MEDS: Prenatal Vit/FA 1 EACH TABLET PO SCH (08:14)
--- NOTE | 2018-10-10 09:59 | Discharge Summary ---
Date of Encounter: 10/10/18 Time of Encounter: 09:56 - Discharge Diagnosis (1) Status post repeat low transverse section Priority: Primary Status: Acute Comments: S/P delivery day 2 Pain is well controlled Lochia is light and without clots VSS Tolerating regular diet, passing flatus Voiding without difficulty Breast feeding Discharge home today - Discharge Medications Prescriptions: New Breast Pump [BREAST PUMP] 1 each .ROUTE AD #1 each Docusate [Colace] 100 mg PO BID #30 capsule Ferrous Sulfate 325 mg PO DAILY #90 tablet Simethicone [Gas-X] 80 mg PO TID PRN tab.chew PRN Reason: Dyspepsia Ibuprofen [Motrin] 600 mg PO Q6HR PRN #30 tablet PRN Reason: Cramping OxyCODONE/APAP 5/325 [Percocet 5/325 MG] 1 each PO Q6H PRN 5 Days #20 tablet PRN Reason: Moderate pain 4-6 Continued Sertraline [Zoloft] 50 mg PO DAILY Home Medications: Sertraline [Zoloft] 50 mg PO DAILY 08/25/18 [History] Breast Pump [BREAST PUMP] 1 each .ROUTE AD #1 each 10/10/18 [Rx] Docusate [Colace] 100 mg PO BID #30 capsule 10/10/18 [Rx] Ferrous Sulfate 325 mg PO DAILY #90 tablet 10/10/18 [Rx] Ibuprofen [Motrin] 600 mg PO Q6HR PRN #30 tablet 10/10/18 [Rx] OxyCODONE/APAP 5/325 [Percocet 5/325 MG] 1 each PO Q6H PRN 5 Days #20 tablet 10/10/18 [Rx] Simethicone [Gas-X] 80 mg PO TID PRN tab.chew 10/10/18 [Rx] Allergies/Adverse Reactions: Allergy/AdvReac Type Severity Reaction Status Date / Time No Known Allergies Allergy Verified 09/09/18 20:06 Data Procedures and tests throughout hospitalization: Laboratory Tests 10/08/18 10/08/18 10/09/18 15:35 16:23 08:29 WBC 14.9 H 18.1 H RBC 3.97 4.09 Hgb 11.8 12.4 Hct 35.9 38.3 MCV 90.4 93.6 MCH 29.7 30.3 MCHC 32.9 32.4 RDW 13.7 13.9 Plt Count 219 229 MPV 11.7 12.0 Immature Gran % 0.5 0.6 Seg Neutrophils % 82.9 77.3 Lymphocytes % 13.1 17.5 Monocytes % 3.2 4.2 Eosinophils % 0.1 0.2 Basophils % 0.2 0.2 Neutrophils # 12.3 H 14.0 H Lymphocytes # 1.9 3.2 Monocytes # 0.5 0.8 Eosinophils # 0.0 0.0 Basophils # 0.0 0.0 Baby's Blood Type A RH NEGATIVE Mother's Blood Type A RH NEGATIVE Rhogam Indicated NO - Impressions ITS Impressions KUB X-Ray 10/08/18 16:24 IMPRESSION: No radiopaque foreign bodies seen on this limited view of the abdomen D/ / Jace Alcazar MD / Jace Alcazar MD Interpreting Provider: Jace Alcazar MD Date of admission: 10/08/18 15:16 Primary care physician: PCP NONE Discharging clinician: Cecilia Khan Anticipated date of discharge: 10/10/18 - Patient Status Disposition: Home, Self-Care Condition: Good Functional capacity at discharge: independent ambulation Overall status at discharge: patient is progressing back to baseline - Discharge Instructions Follow Up With: NONE,PCP [Primary Care Provider] - Stevo Grider MD [Partnered Physician] - - Diet and Activity Activity: increase activity as tolerated Diet: regular diet Hospital Course Reason for admission: IUP - , labor Delivery: section Episiotomy: none Laceration: none Other procedures: none complications: none Discharge diagnosis: delivery baby: male Time Attestation: Total time spent providing and/or coordinating discharge services: Time Spent: Less than 30 minutes - VTE Reasons for not Prescribing Prophylaxis: Treatment not Indicated - Low risk for VTE Documentation of Mechanical Device: Intermittent pneumatic compression device Exam - Constitutional Vitals: Temp Pulse Resp BP Pulse Ox 98.3 F 65 16 116/69 100 10/10/18 07:57 10/10/18 07:57 10/10/18 07:57 10/10/18 07:57 10/10/18 07:57 General appearance IM: cooperative, A&O X 3, pleasant - Respiratory Respiratory exam: Present: CTAB - Cardiovascular Cardiovascular exam IM: Present: RRR, +S1, +S2 - GI/Abdominal Incision: normal, dry, intact (steri strips in place c/d/i) - Rectal Rectal exam: deferred - Uterine Tone: Firm Uterus Position: 3 Fingers Below Umbilicus, Midline - Extremities Exam Extremities exam IM: Present: normal capillary refill, normal inspection, radial pulses palpable and symmetrical - Neurological Exam Neurological exam: alert, oriented X3
== END 2018-10-10 11:05 | disposition home or self-care (01) | DRG 540 ==
LOC: 1NENULAB → OBSVTOIN 15:16 → 1NENUOBS 20:15
PROVIDERS: ADMIT Registered Nurse; ATTEND Registered Nurse

== ENCOUNTER 2021-04-11 08:05 | Observation (INO) ==
[2021-04-11 09:32] LABS: Bilirubin,Urine Negative (Negative); Blood,Urine Negative (Negative); Clarity,Urine Clear (Clear); Color,Urine Light-Yellow (Yellow); Glucose,Urine (UA) Normal (Normal); Ketones,Urine Negative (Negative); Leukocyte Esterase,Urine Negative (Negative); Nitrite,Urine Negative (Negative); Protein,Urine Negative (Neg-Trace); Specific Gravity,Urine 1.013 (1.010-1.025); Urobilinogen,Urine Normal (Normal)
[2021-04-11 09:34] LABS: Basophils # 0.1 K/mcL (0.0-0.2); Basophils % 0.4 %; Eosinophils % 0.1 %; Hematocrit 47.8 % (35.3-44.9); Immature Granulocytes % 0.4 % (0-4); Lymphocytes # 1.5 K/mcL (0.6-4.6); Lymphocytes % 10.6 %; Mean Corpuscular HGB Conc 33.5 g/dL (31.6-35.5); Mean Corpuscular Hemoglobin 31.7 pg (28.0-33.3); Mean Corpuscular Volume 94.8 fL (83.0-100.0); Mean Platelet Volume 10.4 fL (9.4-12.4); Monocytes # 0.5 K/mcL (0.0-1.3); Monocytes % 3.8 %; Platelet Count 299 K/mcL (140-400); Red Blood Count 5.04 M/mcL (3.82-4.97); Segmented Neutrophils % 84.7 %; White Blood Count 14.1 K/mcL (4.3-11.1)
[2021-04-11 09:42] LABS: Amphetamine Screen,Urine Negative ng/mL (Cutoff=1000); Barbiturate Screen,Urine Negative ng/mL (Cutoff=200); Benzodiazepines Screen,Urine Negative ng/mL (Cutoff=200); Cannabinoid Screen,Urine Positive ng/mL (Cutoff = 50); Cocaine Screen,Urine Negative ng/mL (Cutoff= 300); Opiate Screen,Urine Negative ng/mL (Cutoff=300); Phencyclidine Screen,Urine Negative ng/mL (Cutoff=25)
[2021-04-11 09:55] LABS: Acetaminophen < 10 mcg/mL (10-20); Alanine Aminotransferase 11 Units/L (7-52); Albumin/Globulin Ratio 1.5 (1.1-2.2); Alkaline Phosphatase 84 Units/L (34-104); Aspartate Amino Transferase 15 Units/L (13-39); BUN/Creatinine Ratio 10 (6-26); Bilirubin,Direct 0.1 mg/dL (0.0-0.2); Bilirubin,Indirect 0.2 mg/dL (0.0-1.0); Bilirubin,Total 0.3 mg/dL (0.3-1.0); Blood Urea Nitrogen 8 mg/dL (6-20); Carbon Dioxide 25 mEq/L (23-29); Chloride 101 mEq/L (98-107); Chol/HDL Ratio 2.3 (0-4.9); Cholesterol 207 mg/dL (< 200); Ethanol 104 mg/dL (Less than 10); Globulin 3.4 g/dL (2.4-3.5); Glucose 100 mg/dL (70-105); HDL Cholesterol 90 mg/dL (40-59); LDL Cholesterol,Calculated 89 mg/dL (< 100); Osmolality,Calculated 284 (280-300); Potassium 3.4 mEq/L (3.5-5.1); Salicylate < 2.5 mg/dL (15.0-30.0); Sodium 138 mEq/L (136-145); Total Protein 8.4 g/dL (6.4-8.9); Triglycerides 140 mg/dL (< 150); eGFR For African Americans > 60 (> 60); eGFR For Non-African Americans > 60 (> 60)
[2021-04-11 10:07] LABS: Thyroid Stimulating Hormone 1.506 mcIU/mL (0.340-5.600)
[2021-04-11] MEDS: *HR* LORazepam 1 MG TABLET PO PRN ×2 (10:09→20:16)
[2021-04-11 11:13] LABS: Influenza A PCR Negative (Negative); Influenza B PCR Negative (Negative); Resp. Syncytial Virus PCR Negative (Negative)
[2021-04-11 11:14] LABS: SARS-CoV-2 by PCR (In House) Negative (Negative)
[2021-04-11] MEDS ORDERED: 0.9 % Sodium Chloride 1,000 ML IV ONE (13:43)
[2021-04-11] MEDS ORDERED: Naloxone 0.4 MG/ML INJ IVP PRN (14:18)
[2021-04-11] MEDS ORDERED: *HR* LORazepam 2 MG/ML VIAL IVP PRN ×3 (14:18)
[2021-04-11] MEDS ORDERED: *HR* Promethazine 25 MG/ML VIAL IM PRN (14:18)
[2021-04-11] MEDS ORDERED: Acetaminophen 325 MG TABLET PO PRN (14:18)
[2021-04-11 15:14] LABS: Estimated Average Glucose 108 mg/dl; Hemoglobin A1C 5.4 %
[2021-04-11] MEDS: Ondansetron 4 MG/2 ML VIAL IVP PRN (20:15)
[2021-04-11] MEDS: Melatonin 3 MG TABLET PO PRN (20:16)
[2021-04-11] MEDS: Nicotine 14 MG PATCH.TD24 TD SCH (22:05)
[2021-04-12 04:07] LABS: Hematocrit 42.1 % (35.3-44.9); Mean Corpuscular HGB Conc 32.3 g/dL (31.6-35.5); Mean Corpuscular Volume 95.9 fL (83.0-100.0); Mean Platelet Volume 10.8 fL (9.4-12.4); Platelet Count 212 K/mcL (140-400); Red Blood Count 4.39 M/mcL (3.82-4.97); Red Cell Distribution Width 14.1 % (11.5-14.5); White Blood Count 8.3 K/mcL (4.3-11.1)
[2021-04-12 04:11] LABS: Hemoglobin 13.6 g/dL (11.5-15.4)
[2021-04-12 04:21] LABS: BUN/Creatinine Ratio 12 (6-26); Blood Urea Nitrogen 9 mg/dL (6-20); Calcium 8.6 mg/dL (8.6-10.3); Carbon Dioxide 26 mEq/L (23-29); Chloride 107 mEq/L (98-107); Glucose 83 mg/dL (70-105); Magnesium 1.7 mg/dL (1.6-2.6); Osmolality,Calculated 286 (280-300); Phosphorous 3.7 mg/dL (2.7-4.5); Potassium 3.5 mEq/L (3.5-5.1); Sodium 139 mEq/L (136-145); eGFR For African Americans > 60 (> 60); eGFR For Non-African Americans > 60 (> 60)
[2021-04-12] MEDS: Folic Acid 1 MG TABLET PO SCH (08:17)
[2021-04-12] MEDS: Thiamine (B-1) 100 MG TABLET PO SCH (08:17)
[2021-04-12] MEDS: Nicotine 14 MG PATCH.TD24 TD SCH (08:17)
[2021-04-12] MEDS: Ondansetron 4 MG/2 ML VIAL IVP PRN (08:27)
[2021-04-12] MEDS: *HR* LORazepam 1 MG TABLET PO PRN (10:50)
[2021-04-12] MEDS: Melatonin 3 MG TABLET PO PRN (22:14)
[2021-04-13] MEDS: Nicotine 14 MG PATCH.TD24 TD SCH (09:02)
[2021-04-13] MEDS: Thiamine (B-1) 100 MG TABLET PO SCH (09:03)
[2021-04-13] MEDS: Folic Acid 1 MG TABLET PO SCH (09:03)
[2021-04-13] MEDS: *HR* LORazepam 1 MG TABLET PO PRN ×2 (10:50→21:16)
[2021-04-13] MEDS: Ondansetron 4 MG/2 ML VIAL IVP PRN (13:11)
[2021-04-13] MEDS: Melatonin 3 MG TABLET PO PRN (21:16)
[2021-04-14 00:28] VITALS: TEMP 98.1; O2SAT 98
[2021-04-14 06:46] VITALS: BP 124/76; PULSE 81
[2021-04-14] MEDS: Nicotine 14 MG PATCH.TD24 TD SCH (08:48)
[2021-04-14] MEDS: Thiamine (B-1) 100 MG TABLET PO SCH (08:48)
[2021-04-14] MEDS: Folic Acid 1 MG TABLET PO SCH (08:48)
== END 2021-04-14 11:20 | disposition home or self-care (01) ==
LOC: EMEROOARM 08:05 → 3BNU 08:05 → SUATTDRO 18:11 → 3BNU 19:54
PROVIDERS: ADMIT Student in an Organized Health Care Education/Training Program; ATTEND Registered Nurse